=== PATIENT | male | born 1980 | race Caucasian/White ===

== ENCOUNTER → 2024-01-07 12:40 | Outpatient (BNVA) | payer MEDICAID, SELFPAY | PROVIDERS: Visit Provider Emergency Medicine | DX: S20.212A Contusion of left front wall of thorax, initial encounter (principal); W19.XXXA Unspecified fall, initial encounter | CPT/HCPCS: 71046 ==

== ENCOUNTER 2024-02-16 11:44 | Outpatient (CLI) | payer MEDICAID, SELFPAY ==
--- NOTE | 2024-02-16 11:51 | US_ITS ---
WS: [id number] BILATERAL 3D TOMOSYNTHESIS DIGITAL DIAGNOSTIC MAMMOGRAPHY WITH CAD CLINICAL INFORMATION: L breast pain HISTORY: LEFT nipple discharge and LEFT breast pain COMPARISON: Baseline TECHNIQUE: Bilateral CC, MLO, and ML views. FINDINGS: Scattered fibroglandular densities bilaterally. Incidental punctate and lucent centered calcification s. No suspicious parenchymal abnormalities in the area of pain LEFT breast. Ultrasound is pending. ULTRASOUND BREAST LEFT TECHNIQUE: Ultrasound left breast focused area of concern. CLINICAL INFORMATION: L breast pain FINDINGS: Ultrasound LEFT breast in the areas of concern and subareolar. Ultrasound areas of interest LEFT [facility] at the 10:00 and 12:00 positions demonstrate normal underlying parenchymal tissue. No cystic or so lid lesions. Ultrasound subareolar LEFT breast demonstrates minimal ductal ectasia. No visualized intraductal lesi ons. Findings are benign. Recommend return to annual screening mammography. IMPRESSION: US/US breast LT limited* [id number] BI-RADS: 2-Benign FOLLOW UP: 1 Year Follow-up Recommend return to annual screening mammography.
--- NOTE | 2024-02-16 12:00 | MM_ITS ---
WS: [id number] BILATERAL 3D TOMOSYNTHESIS DIGITAL DIAGNOSTIC MAMMOGRAPHY WITH CAD CLINICAL INFORMATION: L breast pain HISTORY: LEFT nipple discharge and LEFT breast pain COMPARISON: Baseline TECHNIQUE: Bilateral CC, MLO, and ML views. FINDINGS: Scattered fibroglandular densities bilaterally. Incidental punctate and lucent centered calcification s. No suspicious parenchymal abnormalities in the area of pain LEFT breast. Ultrasound is pending. ULTRASOUND BREAST LEFT TECHNIQUE: Ultrasound left breast focused area of concern. CLINICAL INFORMATION: L breast pain FINDINGS: Ultrasound LEFT breast in the areas of concern and subareolar. Ultrasound areas of interest LEFT [facility] at the 10:00 and 12:00 positions demonstrate normal underlying parenchymal tissue. No cystic or so lid lesions. Ultrasound subareolar LEFT breast demonstrates minimal ductal ectasia. No visualized intraductal lesi ons. Findings are benign. Recommend return to annual screening mammography. IMPRESSION: MM/[place] [id number] BI-RADS: 2-Benign FOLLOW UP: 1 Year Follow-up Recommend return to annual screening mammography.
== END 2024-02-16 11:45 | disposition home or self-care (01) ==
LOC: RAD 11:45
PROVIDERS: PCP Family Medicine; Visit Provider Family Medicine
DX: Z12.31 Encounter for screening mammogram for malignant neoplasm of breast (principal); N64.4 Mastodynia; N64.52 Nipple discharge; N60.42 Mammary duct ectasia of left breast; I10 Essential (primary) hypertension; Z79.899 Other long term (current) drug therapy
CPT/HCPCS: 76642; 77062; 80053; 80061; 81000; 82570; 84156; 84439; 84443; 85025; G0279

== ENCOUNTER → 2024-03-14 10:39 | Outpatient (BNVA) | payer MEDICAID, SELFPAY | PROVIDERS: PCP Family Medicine; Visit Provider Anesthesiology Pain Medicine | DX: M54.50 Low back pain, unspecified (principal); G89.29 Other chronic pain; M51.16 Intervertebral disc disorders with radiculopathy, lumbar region; F41.9 Anxiety disorder, unspecified; G43.909 Migraine, unspecified, not intractable, without status migrainosus | CPT/HCPCS: 72110; 99204 ==

== ENCOUNTER → 2024-04-04 09:54 | Outpatient (BNVA) | payer MEDICAID, SELFPAY | PROVIDERS: PCP Family Medicine; Visit Provider Anesthesiology Pain Medicine | DX: F41.9 Anxiety disorder, unspecified; G43.909 Migraine, unspecified, not intractable, without status migrainosus; M51.16 Intervertebral disc disorders with radiculopathy, lumbar region | CPT/HCPCS: 99214 ==

== ENCOUNTER → 2024-05-02 09:59 | Outpatient (BNVA) | payer MEDICAID, SELFPAY | PROVIDERS: PCP Family Medicine; Visit Provider Anesthesiology Pain Medicine | DX: M51.16 Intervertebral disc disorders with radiculopathy, lumbar region; M79.18 Myalgia, other site | CPT/HCPCS: 20553; 99215; J1010; J3490 ==

== ENCOUNTER → 2024-07-18 07:56 | Outpatient (BNVA) | payer MEDICAID, SELFPAY | PROVIDERS: PCP Family Medicine; Referring Provider Family Medicine; Visit Provider Specialist | DX: G43.909 Migraine, unspecified, not intractable, without status migrainosus (principal); G43.711 Chronic migraine without aura, intractable, with status migrainosus | CPT/HCPCS: 99204 ==

== ENCOUNTER → 2024-10-12 11:33 | Outpatient (BNVA) | payer MEDICAID, SELFPAY | PROVIDERS: PCP Family Medicine; Visit Provider Specialist | DX: G43.711 Chronic migraine without aura, intractable, with status migrainosus (principal) | CPT/HCPCS: 64615; J0585 ==